=== PATIENT | male | born 1965 | race Caucasian/White ===

== ENCOUNTER 2016-11-13 08:23 | Emergency (ER) | payer OTHER ==
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
[2016-11-13 08:50] LABS: BASOPHIL % 0.7 %; EOSINOPHIL # 0.2 K/uL (0.0-0.5); EOSINOPHIL % 2.6 %; HEMATOCRIT 44.4 % (37.0-53.0); HEMOGLOBIN 15.2 g/dL (12.0-17.0); IMMATURE GRANULOCYTE % 0.3 %; LYMPHOCYTE # 1.8 K/uL (0.8-4.0); LYMPHOCYTE % 29.7 %; MCH 30.5 pg (27.0-34.0); MCHC 34.2 gm/dL (32.0-36.5); MONOCYTE # 0.4 K/uL (0.0-1.0); MONOCYTE % 7.3 %; MPV 9.6 fl (9.4-12.4); NEUTROPHIL # (ANC) 3.6 K/uL (1.4-9.0); NEUTROPHIL % 59.4 %; NRBC % 0 /100WBC (0-0.00); PLATELET COUNT 212 K/uL (150-450); RBC 4.99 M/uL (4.00-6.00); WBC 6.1 K/uL (4.0-11.0)
[2016-11-13 09:11] LABS: ALBUMIN 3.8 gm/dL (3.5-5.0); ALK PHOS 57 IU/L (33-138); ALT 28 IU/L (12-78); ANION GAP 8.9 (10.0-19.0); AST 21 IU/L (10-40); BLOOD UREA NITROGEN 21 mg/dL (6-24); CALCIUM 8.4 mg/dL (8.5-10.5); CHLORIDE 106 mMol/L (96-110); CO2 29 mMol/L (22-32); CPK 168 IU/L (35-332); CREATININE 1.3 mg/dL (0.6-1.3); POTASSIUM 3.9 mMol/L (3.7-5.1); SODIUM 140 mMol/L (135-145); TOTAL BILIRUBIN 0.6 mg/dL (0.0-1.5)
[2016-11-13 09:16] LABS: ESTIMATED GFR (MDRD EQUATION) 59
== END 2016-11-13 10:15 | disposition disaster alternative care site (69) ==
LOC: GACC 08:23
PROVIDERS: Emergency Medicine
DX: S00.81XA Abrasion of other part of head, initial encounter (principal); I10 Essential (primary) hypertension; R91.1 Solitary pulmonary nodule; E78.00 Pure hypercholesterolemia, unspecified; Z79.899 Other long term (current) drug therapy; Z88.5 Allergy status to narcotic agent; V43.52XA Car driver injured in collision with other type car in traffic accident, initial encounter; Y93.89 Activity, other specified; Y92.411 Interstate highway as the place of occurrence of the external cause